=== PATIENT | female | born 1985 | race American Indian/Alaskan Native ===

== ENCOUNTER 2021-04-01 19:29 | Emergency (ER) | payer OTHER ==
[2021-04-01] MEDS ORDERED: oxyCODONE /ACETAMINOPHEN 5-325MG TAB PO ONE (19:56)
[2021-04-01] MEDS ORDERED: predniSONE 20 MG TAB PO ONE (19:59)
--- NOTE | 2021-04-01 20:07 | Emergency Department Report ---
ED General Adult HPI - General Chief complaint: Extremity Injury, Upper Stated complaint: RIGHT HAND INJURY Time Seen by Provider: 04/01/21 19:49 Source: patient Mode of arrival: Ambulatory Limitations: No Limitations - History of Present Illness Initial comments: 35-year-old -[place] female patient without past medical history presents with complaints of sudden onset of right fourth digit pain and hand swelling x3 days. She denies any physical or penetrating injuries. Patient states she was seen [facility] yesterday and prescribed ibuprofen and after having a normal x-ray of the hand performed. She states she was also given a shot of Toradol and that her pain has not improved. She denies any fever/chills/sweats, IV drug use, or recent surgeries. Patient rates her pain as a 10/10 in severity and states she is unable to extend her finger. - Related Data Previous Rx's Medication Instructions Recorded Last Taken Type Acetaminophen/Codeine [Tylenol 1 tab PO Q8H PRN #8 tab 04/01/21 Unknown Rx /Codeine # 3 tab] Naproxen 500 mg PO BID PRN #20 tablet 04/01/21 Unknown Rx Prednisone [predniSONE 10 mg 10 mg PO .TAPER #1 tab.ds.pk 04/01/21 Unknown Rx (6-Day Pack, 21 Tabs)] Allergies Allergy/AdvReac Type Severity Reaction Status Date / Time No Known Allergies Allergy Unverified 04/01/21 19:45 ED Review of Systems ROS: Stated complaint: RIGHT HAND INJURY Other details as noted in HPI Constitutional: denies: chills, fever Respiratory: denies: shortness of breath Cardiovascular: denies: chest pain Musculoskeletal: joint swelling, arthralgia Skin: change in color. denies: rash, lesions Neurological: denies: headache ED Past Medical Hx - Past Medical History Previous Medical History?: No - Surgical History Past Surgical History?: No - Medications Home Medications: Home Medications Medication Instructions Recorded Confirmed Last Taken Type Acetaminophen/Codeine [Tylenol 1 tab PO Q8H PRN #8 tab 04/01/21 Unknown Rx /Codeine # 3 tab] Naproxen 500 mg PO BID PRN #20 tablet 04/01/21 Unknown Rx Prednisone [predniSONE 10 mg 10 mg PO .TAPER #1 tab.ds.pk 04/01/21 Unknown Rx (6-Day Pack, 21 Tabs)] ED Physical Exam - General Limitations: No Limitations General appearance: alert, in no apparent distress - Head Head exam: Present: atraumatic, normocephalic - Eye Eye exam: Present: normal appearance. Absent: scleral icterus - Respiratory Respiratory exam: Absent: respiratory distress - Cardiovascular Cardiovascular Exam: Present: regular rate - Extremities Exam Extremities exam: Present: other (Tenderness to palpation noted to right fourth metacarpal and fourth digit along with swelling and redness noted just beneath the MCP joint; significant pain with passive extension) - Neurological Exam Neurological exam: Present: alert, oriented X3 - Psychiatric Psychiatric exam: Present: normal affect, normal mood - Skin Skin exam: Present: warm, dry ED Course Vital Signs 04/01/21 04/01/21 19:40 23:13 Temperature 98.5 F Pulse Rate 79 78 Respiratory 18 20 Rate Blood Pressure 152/105 Blood Pressure 135/86 [Left] O2 Sat by Pulse 95 98 Oximetry ED Medical Decision Making - Lab Data Result diagrams: 04/01/21 20:08 04/01/21 20:08 - Radiology Data Radiology results: report reviewed XR hand 3+V RT INDICATION / CLINICAL INFORMATION: 4th MCP and digit pain and swelling/no injury. COMPARISON: None available. FINDINGS: 1.3 cm amorphous radiodensity is seen along the radial aspect of the right fourth MCP joint, not further localized on lateral view. This may reflect calcium hydroxyapatite deposition or possibly retained foreign body. Recommend clinical correlation. No aggressive cortical destructive changes. No evidence of inflammatory arthropathy. No acute fracture or malalignment. Bone mineralization is preserved. Soft tissues are otherwise unremarkable. - Medical Decision Making 35-year-old -[place] female patient without past medical history presents with complaints of sudden onset of right fourth digit pain and hand swelling x3 days. She denies any physical or penetrating injuries. Patient states she was seen [facility] yesterday and prescribed ibuprofen and after having a normal x-ray of the hand performed. She states she was also given a shot of Toradol and that her pain has not improved. She denies any fever/chills/sweats, IV drug use, or recent surgeries. Patient rates her pain as a 10/10 in severity and states she is unable to extend her finger. No cellulitic changes noted on exam. X-ray shows calcium hydroxyapatite deposition versus foreign body-patient denies any possibility of foreign bodies or injuries. Symptoms are likely not infectious given x-ray findings, history, and vitals. Pain improved with meds given here in ED. Recommend patient follows up with orthopedics for further evaluation and treatment. Patient placed in a metal finger splint. Discussed findings, presumptive diagnosis, care plan, and signs and symptoms that should prompt immediate return to the emergency department in detail with patient, she verbalizes understanding. She is otherwise well-appearing and stable for discharge home Critical care attestation.: If time is entered above; I have spent that time in minutes in the direct care of this critically ill patient, excluding procedure time. ED Disposition Clinical Impression: Right hand pain Disposition: HOME / SELF CARE / HOMELESS Is pt being admited?: No Condition: Stable Instructions: Tenosynovitis Additional Instructions: Discontinue ibuprofen Prescriptions: Naproxen 500 mg PO BID PRN #20 tablet PRN Reason: pain Prednisone [predniSONE 10 mg (6-Day Pack, 21 Tabs)] 10 mg PO .TAPER #1 tab.ds.pk Acetaminophen/Codeine [Tylenol /Codeine # 3 tab] 1 tab PO Q8H PRN #8 tab PRN Reason: Pain , Severe (7-10) Referrals: [facility] [Provider Group] - 3-5 Days
[2021-04-01 20:36] LABS: Basophils % (Auto) 0.4 % (0.0-1.8); Eosinophils # (Auto) 0.2 K/mm3 (0.0-0.4); Hematocrit 40.3 % (30.3-42.9); Hemoglobin 12.8 gm/dl (10.1-14.3); Lymphocytes # (Auto) 1.9 K/mm3 (1.2-5.4); Lymphocytes % (Auto) 24.3 % (13.4-35.0); Mean Corpuscular HGB Conc 32 % (30-34); Mean Corpuscular Volume 86 fl (79-97); Monocytes # (Auto) 0.4 K/mm3 (0.0-0.8); Monocytes % (Auto) 5.8 % (0.0-7.3); Platelet Count 234 K/mm3 (140-440); Red Blood Count 4.69 M/mm3 (3.65-5.03); Red Cell Distribution Width 13.8 % (13.2-15.2)
[2021-04-01 20:41] LABS: BUN/Creatinine Ratio 28; Blood Urea Nitrogen 11 mg/dL (7-17); Calcium 9.5 mg/dL (8.4-10.2); Hemolysis Index 7
--- NOTE | 2021-04-01 20:48 | XRay Report ---
XR hand 3+V RT INDICATION / CLINICAL INFORMATION: 4th MCP and digit pain and swelling/no injury. COMPARISON: None available. FINDINGS: 1.3 cm amorphous radiodensity is seen along the radial aspect of the right fourth MCP joint, not furt her localized on lateral view. This may reflect calcium hydroxyapatite deposition or possibly retaine d foreign body. Recommend clinical correlation. No aggressive cortical destructive changes. No eviden ce of inflammatory arthropathy. No acute fracture or malalignment. Bone mineralization is preserved. Soft tissues are otherwise unremarkable. Signer Name: Bairon Chavarria MD Signed: 04/01/2021 8:43 PM Workstation Name: [id number]
[2021-04-01 23:20] VITALS: BP 135/86
== END 2021-04-01 23:13 | disposition home or self-care (01) ==
LOC: ED 19:29
DX: M79.641 Pain in right hand (principal); M79.644 Pain in right finger(s)
CPT/HCPCS: 29130; 36415; 73130; 80048; 85025; 99283; J7512